=== PATIENT | male | born 1955 | race Caucasian/White ===

== ENCOUNTER 2021-02-13 06:21 | Day surgery (SDC) | payer OTHER ==
[~2021-02-13] VITALS: Ht 165.1 cm; Wt 59.4 kg
[~2021-02-13 06:21] MED LIST: ASPIRIN EC81 M1 PO; METOPROLOL SUCC50 MG PO; NORVASC5 MG PO; PROAIR HFA8.5 GM INH; SUPER B MAXI C0.4 MG PO; THYROSAFE PO; VITAMIN D31250 MC1 PO; ZINC50 M2 PO
[2021-02-13 07:11] VITALS: BP 161/71
--- NOTE | 2021-02-13 08:22 | EKG ---
[address] [address] ELECTROCARDIOGRAM REPORT Name: SHAWN LEONARDO Room #: 150-1 [facility].#: [id number] Admission: 02/13/21 Attend Phys: Shawn Cadet MD Discharge: Date of : 59 Report #: [id number] [facility] Test Date: 2021-02-13 Test Time: 07:13:33 Pat Name: SHAWN LEONARDO Department: Room: Gender: Utilization Supervisor: [facility] : 1955 Requested By: Kimberly Salazar Order Number: [id number] MD: Fadi Pineda Measurements Intervals [place] Rate: 58 P: 29 [place]: 163 QRS: -11 QRSD: 96 T: 9 QT: 419 QTc: 412 Interpretive Statements Sinus bradycardia Otherwise normal tracing No previous ECG available for comparison Electronically Signed On 02-13-2021 8:22:43 CDT by Fadi Pineda [email or web address] <ELECTRONICALLY SIGNED> By: Fadi Pineda MD, [facility] 02/13/21821 2 2 Fadi Pineda MD, FAC /EPI
[2021-02-13] MEDS ORDERED: HYDROCODON-ACE1 EAC7 PO (09:27)
[2021-02-13 09:33] VITALS: BP 161/71
--- NOTE | 2021-02-13 10:40 | O ---
[facility] [place] [address] OPERATIVE REPORT Name: MALISSASHAWN Frost Room #: 150-1 [facility]..#: [id number] Admission: 02/13/21 Attend Phys: Shawn Cadet MD Discharge: Date of : 59 Report #: [id number] THIS REPORT FOR: cc: Kodak Alvarez,Kodak Lai,Shawn Anthony MD ~ cc: Kodak Alvarez DO DATE OF SERVICE: 02/13/2021 PATIENT OF: Dr. Shawn Cadet and Dr. Kodak Alvarez. PREOPERATIVE DIAGNOSIS: Right inguinal hernia. POSTOPERATIVE DIAGNOSIS: Right inguinal hernia. PROCEDURE: Right inguinal hernia repair with Prolene hernia system mesh. SURGEON: Shawn Cadet M.D. ANESTHESIA: Local IV sedation. DESCRIPTION OF PROCEDURE: The patient was brought to the operating room and placed on the operating table in the supine position. Sequential compression devices were in place for DVT prophylaxis. There was no indication for preoperative antibiotics. The patient underwent IV sedation. The right inguinal area was prepped and draped in a sterile fashion. Skin and subcutaneous tissue were then infiltrated with 0.5% Marcaine, 1% Xylocaine with epinephrine. Right inguinal skin incision was then performed using a #10 scalpel blade. Hemostasis obtained using the electrocautery. Dissection was carried down through the subcutaneous tissue and the Monique's fascia to the external oblique fascia. The external oblique fascia was then incised with a knife and opened with the Metzenbaum scissors. The cord was then carefully dissected free and held in place with Correll drain. Cremasteric muscle fibers were then split in the direction of the fibers using clamp and electrocautery. There was no significant indirect inguinal hernia sac. I then explored the floor and there was a moderate-sized direct inguinal hernia defect. The hernia sac was mobilized, then incised just above the level of the floor and then reduced back through the preperitoneal space, which was then developed using blunt dissection. An extended Prolene hernia system mesh was then inserted through the floor and the underlay patch was then deployed into the preperitoneal space. The floor was then tightened over the preperitoneal mesh using a running 2-0 Prolene 2-layer Shouldice repair. The overlay patch was then deployed into the inguinal canal and it was secured to the pubic tubercle using the same running 2-0 Prolene suture. It was then secured superiorly and at the connector using simple interrupted 2-0 Vicryl sutures. The mesh was [facility] [address] [place] [address] OPERATIVE REPORT Name: SHAWN LEONARDO Room #: 150-1 [facility].#: [id number] Admission: 02/13/21 Attend Phys: Shawn Cadet MD Discharge: Date of : 59 Report #: [id number] split, wrapped around the cord, secured to the inguinal ligament with simple interrupted 2-0 Vicryl suture. The cord was then returned to the canal intact. The external oblique fascia was then closed using running 2-0 Vicryl suture. Monique's fascia was then reapproximated using 3 simple interrupted 2-0 chromic sutures and the skin was then closed with a running 4-0 subcuticular Vicryl stitch. The wound was then dressed with Mastisol, half-inch Steri-Strips cut in half, Telfa, 4 x 4 gauze, sponge, and tape. The patient was then taken to the recovery room awake, alert, in good condition. Estimated blood loss was approximately 5 mL and the patient tolerated the procedure well. All sponge, lap and instrument counts were correct x2. <ELECTRONICALLY SIGNED> By: Shawn Cadet MD 02/13/21 1040 0822 [id number] Shawn Cadet MD /nt
== END 2021-02-13 10:50 | disposition home or self-care (01) ==
LOC: OR 06:21 → TBA 06:21 → OR 10:50
PROVIDERS: ATTEND Surgery
DX: K40.90 Unilateral inguinal hernia, without obstruction or gangrene, not specified as recurrent (principal); I10 Essential (primary) hypertension; J45.909 Unspecified asthma, uncomplicated; K21.9 Gastro-esophageal reflux disease without esophagitis; N40.0 Benign prostatic hyperplasia without lower urinary tract symptoms; Z98.890 Other specified postprocedural states; Z79.899 Other long term (current) drug therapy; Z20.822 Contact with and (suspected) exposure to COVID-19; Z87.891 Personal history of nicotine dependence; Z86.73 Personal history of transient ischemic attack (TIA), and cerebral infarction without residual deficits; Z79.82 Long term (current) use of aspirin; Z87.442 Personal history of urinary calculi
CPT/HCPCS: 50010; 50101; 50386; 50403; 56524; 56525; 56526; 56528; 58646; 62110; 62850; 70005